=== PATIENT | female | born 1960 | race Caucasian/White ===

== ENCOUNTER → 2020-11-22 09:30 | Outpatient (CLI) | payer MEDICAID, SELFPAY ==
--- NOTE | 2020-11-22 09:37 | US_ITS ---
PROCEDURE: US FNA THYROID CLINICAL INDICATION: RT THYROID NODULE Dominant solid right thyroid nodule COMPARISON: No exams were available for comparison TECHNIQUE: Following obtaining informed consent and time-out procedure using aseptic technique and local anesthesia with buffered lidocaine, fine-needle aspiration was performed of the nodule of interest using sonographic guidance. 3 passes were made into the nodule with a 20-gauge needle. Specimen was given to cytology. The patient tolerated the procedure well without evidence of immediate complications and left the ultrasound suite in stable condition. FINDINGS: CYTOLOGY: Atypical follicular lesion of undetermined significance IMPRESSION: Status post fine needle aspiration right thyroid nodule without complications. Atypical follicular lesion of undetermined significance on cytology. Please see pathologist report with recommendations Dictated by: Deangelo De León MD 12/19/2020 10:08 Deangelo De León MD in [place] 12/19/2020 10:08
== END ==
PROVIDERS: PCP Internal Medicine; Visit Provider Otolaryngology
DX: D34 Benign neoplasm of thyroid gland (principal)
CPT/HCPCS: 10005; 76536